=== PATIENT | male | born 1965 | race Caucasian/White ===

== ENCOUNTER 2016-08-12 05:19 | Day surgery (SDC) | payer BC ==
[2016-07-28 11:41] VITALS: BMI 45.0
--- NOTE | 2016-07-28 12:06 | PAT Medication Instructions ---
Service Date Jul 28, 2016. Current Home Medication List B-Complex Vitamins (Vitamin B Complex), 1 TAB PO QAM Cholecalciferol (Vitamin D3), 1,000 INTER.UNIT PO QAM Dicyclomine Hcl (Bentyl), 10 MG PO TIDM Enalapril (Vasotec), 5 MG PO QAM Fish Oil ([place]-3), 1 CAP PO QAM Fluticasone Propionate (Nasal) (Flonase), 1 SPRAY JAVAN QPM Glucosamine-Chondroitin (Cosamin Ds), 1 CAP PO QAM Montelukast Sodium (Singulair), 10 MG PO HS Multiple Minerals W/ Vitamins (Citracal Plus), 1 TAB PO QAM Naproxen (Aleve), 660 MG PO QAM PRN for Pain Pantoprazole (Protonix), 20 MG PO QAM Probiotic Product (Acidophilus Pearls), 1 CAP PO QAM Psyllium (Metamucil), 1 DOSE PO QAM Verapamil Hcl (Calan), 120 MG PO BID Medication Instructions For Your Scheduled Surgery - Hold the following medications 2 weeks prior to surgery: Fish Oil ([place]-3), 1 CAP PO QAM Glucosamine-Chondroitin (Cosamin Ds), 1 CAP PO QAM - Hold the following medications 7days prior to surgery per surgeon's instructions: Naproxen (Aleve), 660 MG PO QAM PRN for Pain - Hold the following medications the morning of surgery: B-Complex Vitamins (Vitamin B Complex), 1 TAB PO QAM Cholecalciferol (Vitamin D3), 1,000 INTER.UNIT PO QAM Enalapril (Vasotec), 5 MG PO QAM Dicyclomine Hcl (Bentyl), 10 MG PO TIDM Probiotic Product (Acidophilus Pearls), 1 CAP PO QAM Psyllium (Metamucil), 1 DOSE PO QAM Multiple Minerals W/ Vitamins (Citracal Plus), 1 TAB PO QAM - Take the following medications the morning of surgery with a sip of water OTHERWISE NOTHING TO EAT OR DRINK AFTER MIDNIGHT: Verapamil Hcl (Calan), 120 MG PO BID Pantoprazole (Protonix), 20 MG PO QAM - Take the following medications as scheduled the night before surgery: Verapamil Hcl (Calan), 120 MG PO BID Dicyclomine Hcl (Bentyl), 10 MG PO TIDM Fluticasone Propionate (Nasal) (Flonase), 1 SPRAY JAVAN QPM Montelukast Sodium (Singulair), 10 MG PO HS If you have any questions please call us at [phone] or [phone] or [phone]
[2016-07-28 12:34] LABS: BASO % 0.5 %; BASO ABS # 0.04 K/uL (0-0.2); COMPLETE YES; EOS % 1.4 %; HEMATOCRIT 43.4 % (42-52); IG% 0.3 %; LYMPH % 36.3 %; LYMPH ABS # 2.88 K/uL (1.2-3.4); MEAN CORPUSCULAR HEMOGLOBIN 27.8 pg (25-34); MEAN CORPUSCULAR HGB CONC 33.9 g/dl (32-36); MEAN PLATELET VOLUME 9.3 fL (7.4-10.4); MONO % 6.9 %; NEUT % 54.6 %; PLATELET COUNT 338 K/uL (130-400); RED BLOOD COUNT 5.29 M/uL (4.7-6.1); WHITE BLOOD COUNT 7.94 K/uL (4.8-10.8)
[2016-07-28 12:58] LABS: BUN/CREATININE RATIO 11.6 (10-20); CREATININE 0.99 mg/dl (0.60-1.40); POTASSIUM 3.9 mmol/L (3.5-5.1)
[~2016-08-12] VITALS: Ht 175.3 cm; Wt 138.9 kg
[~2016-08-12 05:19] MED LIST: B-COTAB18 PO; DICY10CA55 PO; ENAL5TAB83 PO; FLUT0.0529 NAE; GLUC500C67 PO; MONT1TAB3 PO; MULT-663 PO; NAPR1TAB9 PO; OMEG10007 PO; PROB1CAP25 PO; PRT/20 PO; PSYL0.524 PO; VERA120T5 PO; VTMD1000 PO
[2016-08-12 05:37] VITALS: BP 154/98; PULSE 83; TEMP 36.7; O2SAT 96; Ht 175.3 cm; Wt 138.9 kg
[2016-08-12] MEDS ORDERED: CIPROFLOXACIN / D5W 400 MG IV SCH (06:00)
[2016-08-12] MEDS ORDERED: LACTATED RINGER'S 1000ML 1,000 ML IV SCH (06:00)
[2016-08-12] MEDS ORDERED: FENTANYL CITRATE INJ 50 MCG/1 ML 2 ML VIAL ONE ×2 (06:42→07:32)
[2016-08-12] MEDS ORDERED: MIDAZOLAM HCL 1 MG/ML 2ML VIAL ONE (06:42)
--- NOTE | 2016-08-12 07:09 | History & Physical Bridge Note ---
H&P Re-Evaluation Bridge Note: I have examined the patient, reviewed the History & Physical and in the interval since the performance of the History & Physical I have noted the following changes of clinical significance: No changes noted
[2016-08-12] MEDS ORDERED: ATROPINE SULFATE 0.1 MG/ML 5ML SYR IV PRN (07:45)
[2016-08-12] MEDS ORDERED: EpHEDrine SULFATE INJ 50 MG/ML AMP IV PRN (07:45)
[2016-08-12] MEDS ORDERED: FENTANYL CITRATE INJ 50 MCG/1 ML 2 ML VIAL IV PRN (07:45)
[2016-08-12] MEDS ORDERED: ONDANSETRON INJ 2 MG/ML 2 ML VIAL IV PRN (07:45)
--- NOTE | 2016-08-12 07:54 | [facility] Post Operative Brief Note ---
Immediate Operative Summary Operative Date Aug 12, 2016. Pre-Operative Diagnosis Bladder neck contrature and Urethral Stricture Post-Operative Diagnosis Bladder neck contrature; Urethral Stricture Procedure(s) Performed Cystoscopy, Direct Visual Internal Urethrotomy and Incision of Bladder Neck Contrature Surgeon Dr. Reed Crespo Component Assembler Supervisor Surgeon(s) None Estimated Blood Loss 5ml Findings wide caliber bulbar stricture; bladder neck contracture Specimens No specimen as per surgeon Drains 20F siegel Anesthesia Gen Complication(s) None Disposition Recovery Room / PACU (stable)
[2016-08-12] MEDS ORDERED: PHEN-775 PO (07:55)
[2016-08-12] MEDS ORDERED: CIPR-255 PO (07:55)
[2016-08-12] MEDS ORDERED: HYDR-5688 PO (07:55)
[2016-08-12] MEDS ORDERED: DEXAMETHASONE SOD INJ 4 MG/ML VIAL ONE (07:58)
[2016-08-12] MEDS ORDERED: ONDANSETRON INJ 2 MG/ML 2 ML VIAL ONE (07:58)
[2016-08-12] MEDS ORDERED: SUCCINYLCHOLINE CHLORIDE 20 MG/ML 10 ML VIAL IV ONE (07:58)
[2016-08-12] MEDS ORDERED: LIDOCAINE HCL 2% 2 ML VIAL (20MG/ML) ONE (07:58)
[2016-08-12] MEDS ORDERED: PROPOFOL IV EMULSION 10 MG/ML 20 ML VIAL IV ONE (07:58)
[2016-08-12] MEDS ORDERED: OXYCODONE/ACETAMINOPHEN 5-325 TAB PO PRN ×2 (08:00)
[2016-08-12] MEDS ORDERED: SODIUM CHLORIDE 0.9% 1000ML 1,000 ML IV SCH (08:00)
--- NOTE | 2016-08-12 08:00 | Discharge Instructions ---
Discharge Instructions Date of Service Aug 12, 2016. Admission Reason for Admission: Urethral Stricture Discharge Discharge Diagnosis / Problem: urethral stricture Discharge Goals Goal(s): Decrease discomfort, Improve function, Increase independence, Improve disease control Activity Recommendations Activity Limitations: resume your previous activity Lifting Limitations: none Exercise/Sports Limitations: none May Resume Sexual Activity: when tolerated Shower/Bathe: no limitations Driving or Machine Use: no limitations . Discharge Diet Recommended Diet: Regular Diet Procedures Procedures Performed: Cystoscopy, Direct Visual Internal Urethrotomy and Incision of Bladder Neck Contrature Pending Studies Studies pending at discharge: no Medical Emergencies . Who to Call and When: Medical Emergencies: If at any time you feel your situation is an emergency, please call 911 immediately. . Non-Emergent Contact Non-Emergency issues call your: Urologist Call Non-Emergent contact if: you have a fever, temperature is above 101.5, your pain is worsening . . "Provider Documentation" section prepared by Ravi Guajardo. VTE Core Measure Inpt VTE Proph given/why not?: Treatment not indicated [place] Drug Monitoring Program Search Results: patient reviewed within database, no issues identified
--- NOTE | 2016-08-12 08:19 | OPERATIVE REPORT ---
DATE OF OPERATION: 08/12/2016 PREOPERATIVE DIAGNOSIS: Bladder neck contracture and urethral stricture. POSTOPERATIVE DIAGNOSIS: Same. PROCEDURE PERFORMED: Cystoscopy, direct vision internal urethrotomy and incision of bladder neck contracture. SURGEON: Dr. Reed Crespo. ANESTHESIA: General. ESTIMATED BLOOD LOSS: 5 mL. URINE OUTPUT: Not recorded. DRAINS: 20 Kenyan Cardona catheter. DESCRIPTION OF THE PROCEDURE: Wily Luo was identified in the preoperative holding area. Appropriate informed consents were reviewed and completed and the patient was transported to the operating suite. Upon arrival, he received appropriate preoperative antibiotics in the form of Cipro as well as general anesthesia. He was placed in dorsal lithotomy position and sterilely prepped and draped in standard fashion. I began the case by passing a 22 Kenyan cystoscope. I noted a wide caliber bulbar stricture which was navigable with the scope. At the bladder neck he had a white appearing bladder neck contracture with a narrow lumen that was not accommodating to the scope. I was able to visualize through the lumen into the bladder itself. There was no clear stone or other abnormality located in this area. I then withdrew the scope and reentered with a direct visual internal urethrotomy set and the urethrotome. I gently incised the bulbar stricture in the dorsal midline. With a single swipe this opened appropriately. There was very thin stricture. I then advanced the scope to the bladder neck. Utilizing a serrated knife, I was able to make 2 cuts in the bladder neck at 5 o'clock and 7 o'clock respectively. This opened the bladder neck appropriately. I was able to then pass the scope and visualize the full bladder. There were no bladder mucosal abnormalities. Ureteral orifices were in orthotopic position and located several centimeters from this contracture. I then returned to the bladder neck and I opened it slightly wider to allow very easy passage of the scope. There was excellent hemostasis. Leaving the bladder full, I withdrew the scope and placed a 20-Kenyan Cardona catheter without difficulty. I inflated it with 30 mL of water and placed on gentle traction until he goes to the PACU. The patient was subsequently reversed from anesthesia and taken to PACU in stable condition. I attest to the content of the Intraoperative Record and any orders documented therein. Any exceptio ns are noted below.
--- NOTE | 2016-08-12 08:27 | Anesthesiology Progress Note ---
Anesthesia Post Op Note Date & Time Aug 12, 2016 at 08:27 Vital Signs Pain Intensity: 0 Vital Signs Past 12 Hours Date Time Temp Pulse Resp B/P Pulse Ox O2 Delivery O2 Flow Rate FiO2 08/12/16 08:15 69 17 115/77 99 Mask 10 08/12/16 08:05 76 22 114/72 99 Mask 10 08/12/16 07:57 36.9 66 16 127/89 96 Mask 10 08/12/16 05:37 36.7 83 18 154/98 96 Notes Mental Status: alert / awake / arousable, participated in evaluation Pt Amnestic to Procedure: Yes Nausea / Vomiting: adequately controlled Pain: adequately controlled Airway Patency, RR, SpO2: stable & adequate BP & HR: stable & adequate Hydration State: stable & adequate Anesthetic Complications: no major complications apparent
[2016-08-12 08:45] VITALS: BP 121/87; PULSE 66; TEMP 36.4; O2SAT 93
[2016-08-12 09:15] VITALS: BP 131/82; PULSE 66; TEMP 37; O2SAT 94
[2016-08-12] MEDS ORDERED: PHENAZOPYRIDINE HCL 200 MG TAB PO ONE (09:55)
== END 2016-08-12 10:05 | disposition home or self-care (01) ==
LOC: C.ACU 05:19
PROVIDERS: ATTEND Urology
DX: N32.0 Bladder-neck obstruction (principal); N35.9 Urethral stricture, unspecified; N13.5 Crossing vessel and stricture of ureter without hydronephrosis; N40.1 Benign prostatic hyperplasia with lower urinary tract symptoms; N52.9 Male erectile dysfunction, unspecified; N21.0 Calculus in bladder; N20.0 Calculus of kidney; R35.1 Nocturia; R35.0 Frequency of micturition; N28.1 Cyst of kidney, acquired; N13.8 Other obstructive and reflux uropathy; N39.0 Urinary tract infection, site not specified; K58.9 Irritable bowel syndrome, unspecified; J30.9 Allergic rhinitis, unspecified; I10 Essential (primary) hypertension; K21.9 Gastro-esophageal reflux disease without esophagitis; E66.9 Obesity, unspecified

== ENCOUNTER → 2017-06-29 | Outpatient (CLI) | payer BC ==
[~2017-06-29] MED LIST changes: +CIPR-255 PO; +GADAVIST IV PRN
--- NOTE | 2017-06-29 09:24 | DIAGNOSTIC IMAGING REPORT ---
BRAIN COMBO CLINICAL HISTORY: 52 years-old Male presenting with MIGRAINE,DIZZINESS. TECHNIQUE: Multisequence, multiplanar MR imaging of the brain was performed before and after the administration of intravenous contrast. IV contrast: 15 mL of Gadavist. COMPARISON: None. FINDINGS: Ventricles and sulci normal in size. Brain parenchyma normal in appearance with preserved zendejas-white differentiation. The hypothalamus/tuber cinereum is normal. No mass effect or midline shift. No restricted diffusion to suggest acute ischemia. No hemorrhage. No extra-axial fluid collection. T2 skull base flow voids preserved. No abnormal parenchymal enhancement. Bone marrow signal intensity within the calvarium within normal limits. IMPRESSION: 1. No acute intracranial pathology. No abnormal enhancement. Electronically signed by: Bradford Youngblood M.D. 06/29/2017 9:22 AM Dictated Date/Time: 06/29/2017 9:02 AM
== END | disposition home or self-care (01) ==
LOC: C.MRI 07:55
PROVIDERS: ATTEND Family Medicine
DX: R42 Dizziness and giddiness (principal); G43.909 Migraine, unspecified, not intractable, without status migrainosus

== ENCOUNTER → 2017-10-13 | Outpatient (CLI) | payer BC ==
[~2017-10-13] MED LIST changes: -GADAVIST IV PRN
--- NOTE | 2017-10-13 09:03 | DIAGNOSTIC IMAGING REPORT ---
R KNEE 1 OR 2 VIEWS ROUTINE, L KNEE 1 OR 2 VIEWS ROUTINE CLINICAL HISTORY: 52 years-old Male presenting with M25.561 PAIN IN RT KNEE. TECHNIQUE: Frontal and lateral views of the right knee as well as frontal and lateral views of the left knee were obtained. COMPARISON: None. FINDINGS: Right: Significant medial joint space loss. Minimal osteophytosis in the medial compartment. More significant osteophytosis in the lateral compartment. Minimal osteophytosis in the patellofemoral compartment. Small knee joint effusion. No acute fracture or malalignment. A loose body may be present in the anterior knee joint in the intercondylar region. Left: More mild medial joint space loss evident in the left knee. Osteophytosis in all 3 compartments. The lateral femoral condyle may also demonstrate a central osteophyte. No evidence of a significant joint effusion. No acute fracture or malalignment. IMPRESSION: 1. 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 2. Right knee joint effusion. 3. Central osteophyte suspected in the lateral femoral condyle of the left knee. 4. No acute osseous injury of either knee. Electronically signed by: Bradford Youngblood M.D. 10/13/2017 9:01 AM Dictated Date/Time: 10/13/2017 8:59 AM
== END | disposition home or self-care (01) ==
LOC: C.RAD1850 08:41
PROVIDERS: ATTEND Nurse Practitioner Family
DX: M25.561 Pain in right knee (principal); M25.461 Effusion, right knee